=== PATIENT | male | born 1950 | race Caucasian/White ===

== ENCOUNTER 2025-03-08 10:02 | Day surgery (SDC) | payer BC, MEDICARE ==
[~2025-03-08 10:02] MED LIST: Sodium Chloride 0.9% 10 ML Syringe FLUSH PRN
[2025-03-08] MEDS ORDERED: Midazolam 1 MG/ML 2 ML SDV IV ONE (10:03)
[2025-03-08] MEDS ORDERED: Lactated Ringers 1,000 ML IV ONE (10:03)
[2025-03-08] MEDS ORDERED: Propofol 200 MG/20 ML SDV IV ONE (10:03)
[2025-03-08] MEDS ORDERED: fentaNYL 100 MCG/2 ML SDV IV ONE (10:03)
[2025-03-08] MEDS ORDERED: Sugammadex Sodium 200 MG/2 ML VIAL IV ONE (10:03)
[2025-03-08] MEDS ORDERED: Dexamethasone 4 MG/ML 5 ML MDV IVPUSH ONE (10:03)
[2025-03-08] MEDS ORDERED: Rocuronium 100 MG/10 ML MDV IV ONE (10:03)
[2025-03-08] MEDS ORDERED: Ketorolac 30 MG/ML SDV IVPUSH ONE (10:03)
[2025-03-08] MEDS ORDERED: Ondansetron 4 MG/2 ML SDV IVPUSH ONE (10:03)
[2025-03-08] MEDS: Lactated Ringers 1,000 ML IV SCH (10:17)
[2025-03-08] MEDS: ceFAZolin 2 GM Vial IVPUSH ONE (11:00)
[2025-03-08] MEDS: Bupivacaine 0.5%/EPINEPHrine 1:200,000 30 ML SDV INJECT ONE (12:04)
== END 2025-03-08 15:20 | disposition home or self-care (01) ==
LOC: FB.SDS 10:02
PROVIDERS: ATTEND Surgery
DX: K80.12 Calculus of gallbladder with acute and chronic cholecystitis without obstruction (principal); N43.3 Hydrocele, unspecified; E11.9 Type 2 diabetes mellitus without complications; E66.01 Morbid (severe) obesity due to excess calories; E78.00 Pure hypercholesterolemia, unspecified; I10 Essential (primary) hypertension; Z88.8 Allergy status to other drugs, medicaments and biological substances; Z68.34 Body mass index [BMI] 34.0-34.9, adult; Z79.84 Long term (current) use of oral hypoglycemic drugs; Z79.899 Other long term (current) drug therapy
CPT/HCPCS: 00790; 47562; 55000; 82947; 88304; 99100; J0665; J0690; J1100; J1885; J2250; J2405; J2704; J3010; J7120